=== PATIENT | female | born 1965 | race Caucasian/White ===

== ENCOUNTER 2017-12-27 10:24 | Inpatient (IN) | payer SELFPAY ==
--- NOTE | 2017-12-27 10:39 | EDPHY ---
H & P Time Seen by Provider: 12/27/17 10:32 HPI/ROS: Chief complaint. Calf pain, swelling HPI. 52-year-old female with recent travel to [place] here with shortness of breath and leg pain swelling. Left leg pain and swelling for the past 3 days. Shortness of breath beginning 6 days ago. [place] [address] [place] that was better with rest. No chest discomfort now. Exertional dyspnea with tasks that had been previously not a problem at her house and now upon return she short of breath with walking. Maybe slight fever. Cough for 1 day. Pain began in the left calf with some swelling and now seems to be in the medial thigh. Patient is on control pills. No history thromboembolic disease. Nausea but no abdominal pain ROS Constitutional. Possible fever Eyes. no problems with vision ENT. no sore throat, no nasal drainage Cardiovascular. Chest pain last week with exertion Respiratory. Exertional dyspnea and now cough Abdominal. Nausea but no abdominal pain . no problems urinating MS. Left calf and medial thigh pain and swelling Skin. no rash Lymph. no swollen glands Neuro. no headache, no dizziness, no difficulty walking or with speech Past Medical/Surgical History: Past medical history cholecystectomy, breast reduction Social History: Single, nonsmoker, no alcohol Smoking Status: Never smoked Physical Exam: General Appearance: Alert well-developed female moderate distress vital signs significant heart rate 109 and O2 saturation on room air 91%. Patient is afebrile Eyes: Pupils equal and round no pallor or injection. ENT, Mouth: Mucous membranes are moist. Respiratory: There are no retractions, lungs are clear to auscultation. Cardiovascular: Regular rate and rhythm. Gastrointestinal: Abdomen is soft and nontender, no masses, bowel sounds normal. Neurological: Awake and alert, sensory and motor exams grossly normal. Skin: Warm and dry, no rashes. Musculoskeletal: Neck is supple nontender. Extremities tenderness left posterior calf and medial thigh to palpation but no obvious swelling. Psychiatric: Patient is oriented X 3, there is no agitation. Constitutional: Initial Vital Signs Temperature (C) 36.7 C 12/27/17 10:32 Heart Rate 109 H 12/27/17 10:32 Respiratory Rate 22 H 12/27/17 10:32 Blood Pressure 139/98 H 12/27/17 10:32 O2 Sat (%) 91 L 06/17/18 10:32 O2 Delivery Mode Room Air Allergies/Adverse Reactions: Penicillins Allergy (Severe, Verified 06/21/09 11:26) Anaphylaxis Home Medications: Medication Instructions Recorded Bcp 12/27/17 Levothyroxine 12/27/17 Prozac 10 MG (*) 12/27/17 Xanax 12/27/17 Medical Decision Making - Diagnostics EKG Interpretation: EKG interpreted by me shows sinus tachycardia normal interval and axis. QRS is normal. Inferior and anterior lateral T-wave flattening. 1 PVC. Rate is 101 Imaging Results: CT angiogram chest reviewed by me and discussed with Dr. Walton shows bilateral PEs as well as saddle embolus. Procedures: IV normal saline, monitor. Zofran for nausea Lovenox subcutaneously ED Course/Re-evaluation: Re-evaluation and patient's O2 saturation is about 85%. She is placed on supplemental Oxygen. She complains of leg pain. She agrees to ibuprofen. Patient given 1 milligram/kilogram Lovenox subcu Patient and I discussed imaging study results, laboratory evaluation, treatment plan including recommendation for admission and transfer to [facility] via ambulance. She expresses understanding and agreement I consulted and discussed the case with Dr. Peres, hospitalist, who agrees to the admission Differential Diagnosis: I considered DVT, PE. Considered pneumonia pneumothorax. Considered leg strain. Clearly the patient is at high risk for PE with recent travel. She has leg swelling and exertional dyspnea. She has both PE and DVT. Also considered acute coronary syndrome - Data Points Laboratory Results: Laboratory Results 12/27/17 11:35 12/27/17 12/27/17 12/27/17 11:45 11:42 11:41 WBC RBC Hgb POC Hgb 15.6 gm/dL gm/dL (12.6-16.3) Hct POC Hct 46 % % (38-47) MCV MCH MCHC RDW Plt Count MPV Neut % (Auto) Lymph % (Auto) [place] % (Auto) Eos % (Auto) Baso % (Auto) Nucleat RBC Rel Count Absolute Neuts (auto) Absolute Lymphs (auto) Absolute Monos (auto) Absolute Eos (auto) Absolute Basos (auto) Absolute Nucleated RBC Immature Gran % Immature Gran # PT INR D-Dimer POC Sodium 134 mEq/L L mEq/L 138 mEq/L mEq/L (135-145) (135-145) POC Potassium 3.7 mEq/L mEq/L 3.7 mEq/L mEq/L (3.3-5.0) (3.3-5.0) POC Chloride 105.0 mEq/L mEq/L 107 mEq/L mEq/L (97-110) (97-110) POC Total CO2 19 mEq/L L mEq/L (22-31) POC BUN 18 mg/dL mg/dL 21 mg/dL mg/dL (7-23) (7-23) POC Creatinine 1.2 mg/dL H mg/dL 1.1 mg/dL H mg/dL (0.6-1.0) (0.6-1.0) POC Glucose 110 mg/dL H mg/dL 111 mg/dL H mg/dL (70-100) (70-100) POC Calcium 9.0 mg/dL mg/dL (8.5-10.4) POC Troponin I 0.03 ng/mL ng/mL (0.00-0.08) NT-Pro-B Natriuret Pep 12/27/17 12/27/17 12/27/17 11:35 11:35 11:35 WBC 11.96 10^3/uL H 10^3/uL (3.80-9.50) RBC 5.21 10^6/uL 10^6/uL (4.18-5.33) Hgb 15.3 g/dL g/dL (12.6-16.3) POC Hgb Hct 45.2 % % (38.0-47.0) POC Hct MCV 86.8 fL fL (81.5-99.8) MCH 29.4 pg pg (27.9-34.1) MCHC 33.8 g/dL g/dL (32.4-36.7) RDW 14.4 % % (11.5-15.2) Plt Count 197 10^3/uL 10^3/uL (150-400) MPV 10.1 fL fL (8.7-11.7) Neut % (Auto) 71.9 % % (39.3-74.2) Lymph % (Auto) 15.6 % % (15.0-45.0) [place] % (Auto) 11.7 % % (4.5-13.0) Eos % (Auto) 0.2 % L % (0.6-7.6) Baso % (Auto) 0.3 % % (0.3-1.7) Nucleat RBC Rel Count 0.0 % % (0.0-0.2) Absolute Neuts (auto) 8.60 10^3/uL H 10^3/uL (1.70-6.50) Absolute Lymphs (auto) 1.87 10^3/uL 10^3/uL (1.00-3.00) Absolute Monos (auto) 1.40 10^3/uL H 10^3/uL (0.30-0.80) Absolute Eos (auto) 0.02 10^3/uL L 10^3/uL (0.03-0.40) Absolute Basos (auto) 0.03 10^3/uL 10^3/uL (0.02-0.10) Absolute Nucleated RBC 0.00 10^3/uL 10^3/uL (0-0.01) Immature Gran % 0.3 % % (0.0-1.1) Immature Gran # 0.04 10^3/uL 10^3/uL (0.00-0.10) PT Pending INR Pending D-Dimer Pending POC Sodium POC Potassium POC Chloride POC Total CO2 POC BUN POC Creatinine POC Glucose POC Calcium POC Troponin I NT-Pro-B Natriuret Pep Pending Medications Given: Discontinued Medications Enoxaparin Sodium (Lovenox) 150 mg SC EDNOW ONE Stop: 12/27/17 12:29 Last Admin: 12/27/17 12:46 Dose: 150 mg Sodium Chloride (Ns) 1,000 mls @ 0 mls/hr IV ONCE ONE; Wide Open PRN Reason: Protocol Stop: 12/27/17 10:54 Last Admin: 12/27/17 11:35 Dose: 1,000 mls Ibuprofen (Motrin) 600 mg PO EDNOW ONE Stop: 12/27/17 11:47 Last Admin: 12/27/17 12:44 Dose: 600 mg Ondansetron HCl (Zofran) 4 mg IVP EDNOW ONE Stop: 12/27/17 10:57 Last Admin: 12/27/17 11:36 Dose: 4 mg Point of Care Test Results: Chemistry 12/27/17 12/27/17 12/27/17 11:45 11:42 11:41 POC Sodium 134 mEq/L L mEq/L 138 mEq/L mEq/L (135-145) (135-145) POC Potassium 3.7 mEq/L mEq/L 3.7 mEq/L mEq/L (3.3-5.0) (3.3-5.0) POC Chloride 105.0 mEq/L mEq/L 107 mEq/L mEq/L (97-110) (97-110) POC Total CO2 19 mEq/L L mEq/L (22-31) POC BUN 18 mg/dL mg/dL 21 mg/dL mg/dL (7-23) (7-23) POC Creatinine 1.2 mg/dL H mg/dL 1.1 mg/dL H mg/dL (0.6-1.0) (0.6-1.0) POC Glucose 110 mg/dL H mg/dL 111 mg/dL H mg/dL (70-100) (70-100) POC Calcium 9.0 mg/dL mg/dL (8.5-10.4) POC Troponin I 0.03 ng/mL ng/mL (0.00-0.08) ISTAT H&H 12/27/17 11:41 POC Hgb 15.6 gm/dL gm/dL (12.6-16.3) POC Hct 46 % % (38-47) Departure - Departure Disposition: [facility] Inpatient Acute Clinical Impression: Acute pulmonary embolus Qualifiers: Pulmonary embolism type: saddle Acute cor pulmonale presence: with acute cor pulmonale Qualified Code(s): I26.02 - Saddle embolus of pulmonary artery with acute cor pulmonale Condition: Fair Referrals: Kat Aldana [Primary Care Provider] - As per Instructions
[2017-12-27] MEDS ORDERED: NS 1,000 ML IV ONE (10:53)
[2017-12-27] MEDS ORDERED: ONDANSETRON 4 MG/2 ML VIAL IVP ONE (10:56)
[2017-12-27] MEDS ORDERED: IOPAMIDOL (ISOVUE 370) 100 ML BTL IV ONE (11:10)
--- NOTE | 2017-12-27 11:27 | CPEKG ---
Heart Rate: 101 RR Interval: 594 P-R Interval: 136 QRSD Interval: 86 QT Interval: 376 QTC Interval: 488 P Marion: 66 QRS Marion: 65 T Wave Marion: -49 EKG Severity - ABNORMAL ECG - EKG Impression: SINUS TACHYCARDIA EKG Impression: VENTRICULAR PREMATURE COMPLEX EKG Impression: BORDERLINE T ABNORMALITIES, DIFFUSE LEADS EKG Impression: BORDERLINE PROLONGED QT INTERVAL Electronically Signed By: Vinay Gamble 27-Dec-2017 11:48:17
[2017-12-27] MEDS ORDERED: IBUPROFEN 600 MG TAB PO ONE (11:46)
[2017-12-27] MEDS ORDERED: ENOXAPARIN 120 MG/0.8 ML SYR SC ONE (12:27)
[2017-12-27] MEDS ORDERED: ENOXAPARIN 150 MG/ML SYR SC ONE (12:28)
[2017-12-27] MEDS ORDERED: ENOXAPARIN 100 MG/ML SYR SC ONE (12:32)
[2017-12-27 12:43] LABS: PLATELET COUNT 197 10^3/uL (150-400)
[2017-12-27 13:00] LABS: INR 1.15 (0.83-1.16); PROTIME(PATIENT) 14.9 SEC (12.0-15.0)
[2017-12-27] MEDS ORDERED: oxyCODONE IR 5 MG TAB PO PRN (15:45)
[2017-12-27] MEDS ORDERED: ACETAMINOPHEN 325 MG TAB PO PRN (16:06)
[2017-12-27] MEDS ORDERED: ONDANSETRON 4 MG/2 ML VIAL IVP PRN (16:06)
[2017-12-27] MEDS ORDERED: ONDANSETRON DISINTEGRATING 4 MG TAB PO PRN (16:06)
[2017-12-27] MEDS ORDERED: ALPRAZolam 0.5 MG TAB PO PRN (16:08)
[2017-12-27] MEDS ORDERED: NS 1,000 ML IV SCH (16:15)
[2017-12-27] MEDS: HYDROCODONE/APAP 5/325 TAB PO PRN ×2 (16:38→20:53)
[2017-12-27] MEDS: WARFARIN SODIUM 5 MG TAB PO SCH (16:38)
[2017-12-27] MEDS ORDERED: BISACODYL 10 MG SUPP PR PRN (18:08)
[2017-12-27] MEDS ORDERED: MAGNESIUM HYDROXIDE 30 ML UDCUP PO PRN (18:08)
[2017-12-27] MEDS ORDERED: LACTULOSE 20 GM/30 ML UDCUP PO PRN (18:08)
[2017-12-27] MEDS ORDERED: POLYETHYLENE GLYCOL 3350 17 GM PKT PO PRN (18:08)
[2017-12-27] MEDS: SENNOSIDES/DOCUSATE SODIUM TAB PO SCH (20:53)
--- NOTE | 2017-12-27 22:15 | GHP ---
[f rep st] HISTORY AND PHYSICAL DATE OF ADMISSION: 12/27/2017 CHIEF COMPLAINT: 1. Chest pain. 2. Shortness of breath. HISTORY OF PRESENT ILLNESS: A 52-year-old female, who has been on oral contraceptives for the last y ear who just came back from a trip to [place]. While in [place] she was having dyspnea, although she attri buted it to the altitude. Four days ago she developed pain in her left leg. She then flew back to [facility] in the following day and continued to have shortness of breath and some chest pain. She de nies any fevers or chills. No cough. REVIEW OF SYSTEMS: A 10-point review of systems was obtained and other than as stated above was nega tive. PAST MEDICAL HISTORY: 1. Hypothyroidism. 2. Depression. MEDICATIONS: Reviewed. SOCIAL HISTORY: No smoking or alcohol. FAMILY HISTORY: No history of blood clots. PHYSICAL EXAMINATION: VITAL SIGNS: Afebrile, blood pressure is 132/90, heart rate is 97, oxygen sat uration 86% on room air and at 95% on 2 L. GENERAL: The patient is well developed, no apparent dist ress. HEENT: Nonicteric sclerae. Extraocular movements intact. Moist mucous membranes. NECK: [place] pple. No thyromegaly. LUNGS: Good effort. Clear to auscultation bilaterally. CARDIOVASCULAR: Re gular rate and rhythm. No murmurs or gallops. ABDOMEN: Positive bowel sounds. Soft, nontender, no ndistended. No hepatosplenomegaly. EXTREMITIES: No clubbing, cyanosis. Mild left lower extremity swelling. NEUROLOGIC: Alert and oriented x3. Moving all 4 extremities equally. PSYCH: Normal aff ect. LABS: CBC shows slight elevation of white blood cell count. Chemistry shows a creatinine of 1.2. C T scan of the chest shows multiple pulmonary embolisms including a saddle left lower extremity DVT. Ultrasound shows DVT of the left lower extremity. ASSESSMENT: A 52-year-old female, presenting with pulmonary embolism and deep venous thrombosis. PLAN: PE and DVT: We will continue Lovenox. Patient does not have insurance, and probably warfarin will be the most economical anticoagulant. Because of her weight, we will start at 10 mg daily and can monitor her INR closely. The control pills probably have contributed to her hypercoagulabi lity. She may be able to continue that through the time that she is being anticoagulated, but it wou ld have to be reconsidered once it is time for her to discontinue anticoagulation. /[id number]/MODL
[2017-12-27] MEDS: ENOXAPARIN 150 MG/ML SYR SC SCH ×2 (23:12→23:13)
[2017-12-28 04:24] LABS: PLATELET COUNT 177 10^3/uL (150-400)
[2017-12-28 04:31] LABS: INR 1.26 (0.83-1.16)
[2017-12-28] MEDS: HYDROCODONE/APAP 5/325 TAB PO PRN ×3 (04:33→13:49)
[2017-12-28] MEDS ORDERED: LEVOTHYROXINE 88 MCG TAB PO SCH (06:00)
[2017-12-28] MEDS: SENNOSIDES/DOCUSATE SODIUM TAB PO SCH ×2 (08:47→20:31)
[2017-12-28] MEDS ORDERED: FLUoxetine 20 MG CAP PO SCH (09:00)
--- NOTE | 2017-12-28 09:01 | WOCRNPDOC ---
WOCRN Advanced Assessment Note - Skin Integrity Problem, Advanced Assess Left Pannus Excoriation Dressing Type: Interdry Dressing Description: Clean/Dry, Intact Exudate Amount: None Integumentary Issue Intervention: Visualized Under Dressing Lou Wound Tissue: Scarred Lou Wound Swelling: None Wound Bed Color: Red Site Odor: Strong, Pungent Skin Integrity Problem Comment: Left pannus and groin with intertrigious dermatitis. Interdry in place. Satellite lesions of fungal origin noted. Continue to use the Interdry. Wound care will not be following. Azul Parisi RN wound care team. Moira SPANN and Dede RN in room for care. Right Pannus Excoriation Dressing Type: Interdry Dressing Description: Clean/Dry Exudate Amount: None Integumentary Issue Intervention: Visualized Under Dressing Lou Wound Tissue: Scarred Lou Wound Swelling: None Site Odor: Moderate, Pungent Skin Integrity Problem Comment: Right pannus healing intertrigious dermatitis. Interdry in place. Satellite lesions of fungal origin noted. Continue to use the Interdry. Wound care will not be following. Azul Parisi RN wound care team. Moira SPANN and Dede RN in room for care.
[2017-12-28] MEDS: ENOXAPARIN 150 MG/ML SYR SC SCH ×2 (11:29→23:07)
--- NOTE | 2017-12-28 11:31 | PDMN ---
Medical Necessity Medical necessity: MCG: M290. A-4 days, Pulmonary Embolism: Pt presented w/ dyspnea and CP, CTA showed extensive b/l pulmonary embolus with saddle embolus, LLE DVT, start and continue anticoag treatment. O2 sat 86% RA, requires continuous O2, HR 109. Continue to monitor and treat, anticipate >2MN.
--- NOTE | 2017-12-28 13:34 | ASMTCMCOM ---
CM Note CM Note Notes: 12/28/2017 Case Management Note Met pt during rounds this morning. Pt admitted for DVT and PE. Pt recently returned from trip abroad. Her Mother was in the room during rounds. PT is recommending home. There are no further case management d/c needs identified d/t pt age, family support and independence with ADL's. Case Mangement d/c poc: independent. Date Signed: 12/28/2017 01:33 PM Electronically Signed By:Lisa Ventura RN
--- NOTE | 2017-12-28 14:45 | HOSPPROG ---
Hospitalist Progress Note Assessment/Plan: DIAGNOSES: # acute PE and DVT of right leg, with travel and oral contraceptives as risk factors * Radiologically has a very significant clot burden in the chest * I reviewed with the patient options for anticoagulant medicine. She has no insurance and so I will give her other prescriptions that she can take pharmacy to investigate the cause of Coumadin and Lovenox verses new oral anticoagulation medicines * remains hypoxemic at this time but stable pulse and blood pressure * High enough risk to warrant ongoing inpatient care here # high suspicion for significant underlying pulmonary hypertension given her marked obesity, and some history of asthma * Will do echocardiogram, and if she does have pulmonary hypertension at this time will need follow-up to see if this resolves, and if it does not resolve would need further investigation and aggressive measures to treat causes such as obesity hypoventilation and sleep apnea if present, etc # morbid obesity # renal insufficiency, suspect chronic but chronicity is uncertain at this time # mildly elevated ALT on admission, uncertain cause of that * Will recheck and if remains elevated should have investigation, suspect MARTIN but broad differential diagnosis possible At this point she is stable from yesterday. Tolerating anticoagulation without difficulty so far. 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: Sinus Exam: alert oriented Very obese skin warm dry color ok resps not labored while in bed on oxygen lungs clear BSs heart regular abd soft nondistended nontender, bowel sounds present limbs warm, no edema iv site ok ALT elevated at 65 min Met panel with stable creatinine 1.1 otherwise unremarkable Unremarkable CBC Objective: Vital Signs Temp Pulse Resp BP Pulse Ox 36.1 C 90 14 115/79 94 12/28/17 11:15 12/28/17 11:15 12/28/17 11:15 12/28/17 11:15 12/28/17 11:15 Laboratory Results 12/28/17 03:40 12/28/17 03:40 12/27/17 12/28/17 12/29/17 06:59 06:59 06:59 Intake Total 2250 Output Total 400 Balance 1850 PT 16.0 SEC (12.0-15.0) H 12/28/17 03:40 INR 1.26 (0.83-1.16) H 12/28/17 03:40 - Time Spent With Patient Time Spent with Patient: greater than 35 minutes Time Spent with Patient: Greater than 35 minutes spent on this patients care, greater than 50% of time spent counseling, educating, and coordinating care regarding the above mentioned plan. ICD10 Worksheet Patient Problems: Problems Problem Status Onset Acute pulmonary embolus Acute
--- NOTE | 2017-12-28 16:01 | ECHO ---
[email or web address] [address] [address] Main: [phone] Fax: Transthoracic Echocardiogram Name: CORDELIA MORENO MR#: [id number] Study Date: 12/28/2017 Study Time: 02:58 PM Date of : 1965 Age: 52 year(s) Height: 172.7 cm (68 in.) Weight: 138.35 kg (305 lb.) BSA: 2.45 m2 Gender: Female Examination: Echo Indication: ASSESS FOR PHTN, OBESITY, PE Image Quality: Adequate Contrast: Requested by: Jordon Wills BP: 115 mmHg/79 mmHg Heart Rate: Rhythm: Indication: ASSESS FOR PHTN, OBESITY, PE Procedure Staff Hair Spring Cutter: Aliza Chris RD Reading Physician: Mason Walker MD Requesting Provider: Conclusions: Normal size left ventricle. Normal global systolic LV function. The ejection fraction is visually estimated to be 55 %. Dilated right heart with septal flattening. The mitral valve is normal in appearance and function. Mild mitral valve regurgitation is present. The aortic valve is tri-leaflet. There is no significant aortic valve regurgitation. No aortic valve stenosis is present. Pulmonary artery pressure is not obtained due to inadequate TR jet. No old studies for comparison. Measurements: Chambers Valvular Assessment AV/MV Valvular Assessment TV/PV Normal Normal Normal Name Value Range Name Value Range Name Value Range Ao Holly (2D): 2.7 cm (1.4 cm-2.6 AV Vmax: 1.30 m/s (1 m/s-1.7 TR Vmax: 2.69 mm/s ( - ) cm) m/s) PV Vmax: 0.69 m/s (0.6 m/s-0.9 IVSd (2D): 1.2 cm (0.6 cm-1.1 AV maxP mmHg ( - ) m/s) cm) AV meanP mmHg ( - ) PV PGmax: 2 mmHg ( - ) LVDd (2D): 4.4 cm (3.9 cm-5.3 BLAYNE (VTI): 2.0 cm ( - ) cm) MV E Vmax: 0.52 m/s ( - ) LVDs (2D): 3.2 cm (2.1 cm-4 MV A Vmax: 0.66 m/s ( - ) cm) MV E/A: 0.79 ( - ) LVPWd (2D): 1.1 cm ( - ) MV PHT: 0.069 s ( - ) LVOTd 2.0 cm 2.0 cm mm MVA (PHT): 3.2 s ( - ) LVEF (BP): 57 % (>=55 %) Visual EF: 55 % RVDd(2D): 3.2 cm (1.9 cm-3.8 cmmm) Patient: CORDELIA MORENO Study Date: 12/28/2017 Page 1 of 2 02:58 PM Continued Measurements: Chambers Valvular Assessment AV/MV Name Value Name Value LADs: 3.4 cm MV DecTime: 239 m/s LADs Lon.7 cm MV E' Septal: 0.06 m/s LA Area: 18.8 cm2 MV E/E' Septal: 8.60 LA Volume: 55 ml MV E/E' Lateral: 5.70 LA Volume Index: 22.4 ml/m2 RA Area: 20.3 cm2 Additional Vessels Name Value Ao Ascendin.7 cm Findings: Left Ventricle: Normal size left ventricle. No LV hypertrophy. Normal global systolic LV function. The ejection fraction is visually estimated to be 55 %. No regional wall motion abnormality. Diastolic dysfunction is present. . Right Ventricle: Dilated right heart with septal flattening. Left Atrium: The left atrium is normal in size. Right Atrium: The right atrium is normal in size. Mitral Valve: The mitral valve is normal in appearance and function. Mild mitral valve regurgitation is present. No mitral stenosis is present. Aortic Valve: The aortic valve is tri-leaflet. There is no significant aortic valve regurgitation. No aortic valve stenosis is present. Tricuspid Valve: The tricuspid valve is normal in appearance and function. The pulmonary artery pressure is mildly increased. Pulmonary artery pressure is not obtained due to inadequate TR jet. Pulmonic Valve: The pulmonic valve is normal in appearance and function. There is no pulmonic regurgitation seen. Aorta: The aorta is normal. Normal size aortic root measuring 2.7 cm. Normal size ascending aorta measuring 2.7 cm. IVC: IVC not well visualized, subcostal windows suboptimal. Pericardium: No pericardial effusion. No pleural effusion. (No Signature Object) Patient: CORDELIA MORENO Study Date: 12/28/2017 Page 2 of 2 02:58 PM [id number]
[2017-12-28] MEDS: WARFARIN SODIUM 5 MG TAB PO SCH (17:09)
[2017-12-28] MEDS: traMADol 50 MG TAB PO PRN (23:07)
[2017-12-29] MEDS: HYDROCODONE/APAP 5/325 TAB PO PRN ×4 (03:45→23:40)
[2017-12-29 04:18] LABS: INR 1.7 (0.83-1.16); PROTIME(PATIENT) 20.1 SEC (12.0-15.0)
[2017-12-29] MEDS: traMADol 50 MG TAB PO PRN ×3 (06:30→18:27)
[2017-12-29] MEDS: LEVOTHYROXINE 88 MCG TAB PO SCH (06:31)
[2017-12-29] MEDS: SENNOSIDES/DOCUSATE SODIUM TAB PO SCH ×2 (09:48→20:21)
[2017-12-29] MEDS: FLUoxetine 20 MG CAP PO SCH (09:50)
[2017-12-29] MEDS ORDERED: CANN-EASE 2 GM TUBE TP PRN (10:12)
[2017-12-29] MEDS: ENOXAPARIN 150 MG/ML SYR SC SCH ×2 (11:04→23:40)
[2017-12-29] MEDS ORDERED: WARFARIN SODIUM 5 MG TAB PO ONE (16:00)
--- NOTE | 2017-12-29 18:57 | HOSPPROG ---
Hospitalist Progress Note Assessment/Plan: DIAGNOSES: # acute PE and DVT of right leg, with travel and oral contraceptives as risk factors * Radiologically has a very significant clot burden in the chest * I reviewed with the patient options for anticoagulant medicine. She has no insurance and so I will give her other prescriptions that she can take pharmacy to investigate the cause of Coumadin and Lovenox verses new oral anticoagulation medicines * Remains hypoxemic in fairly symptomatic with significant exertional dyspnea * High enough risk to warrant ongoing inpatient care here # echocardiogram does not show any pulmonary hypertension # morbid obesity # renal insufficiency, suspect chronic but chronicity is uncertain at this time # mildly elevated ALT on admission, uncertain cause of that * Will check hepatitis-B and C serologies Patient had numerous questions as did her family members at the bedside today and I have answered all these questions to their satisfaction, reviewed the treatment plan, reviewed bleeding risks of anticoagulation, etc Seen by me today on hospitals rounds as well as multidisciplinary rounds SUBJECTIVE: Continues to have some pain in her leg unchanged from yesterday Perhaps less dyspneic at rest but still requiring oxygen, and even with oxygen gets quite dyspneic with any ambulation, could only walk very short distance without having to stop and catch her breath OBJECTIVE Vitals reviewed: Did have 1 episode briefly of tachycardia overnight but is overall so far stable vitals without fever 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, 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: Sinus Exam: alert oriented Very obese skin warm dry color ok resps not labored while in bed on oxygen lungs clear BSs heart regular abd soft nondistended nontender, bowel sounds present limbs warm, no edema iv site ok ALT remains elevated at 67 with other enzymes and bilirubin normal I reviewed echocardiogram which shows no evidence of pulmonary hypertension Objective: Vital Signs Temp Pulse Resp BP Pulse Ox 36.6 C 80 16 130/78 H 96 12/29/17 15:56 12/29/17 15:56 12/29/17 15:56 12/29/17 15:56 12/29/17 15:56 Laboratory Results 12/28/17 03:40 12/28/17 03:40 12/28/17 12/29/17 12/30/17 06:59 06:59 06:59 Intake Total 2250 2049 1000 Output Total 400 Balance 1850 2049 1000 PT 20.1 SEC (12.0-15.0) H 12/29/17 03:35 INR 1.70 (0.83-1.16) H 12/29/17 03:35 - Time Spent With Patient Time Spent with Patient: greater than 35 minutes Time Spent with Patient: Greater than 35 minutes spent on this patients care, greater than 50% of time spent counseling, educating, and coordinating care regarding the above mentioned plan. ICD10 Worksheet Patient Problems: Problems Problem Status Onset Acute pulmonary embolus Acute
[2017-12-29 20:20] LABS: HEPATITIS B SURFACE ANTIGEN NEGATIVE (NEGATIVE); HEPATITIS C ANTIBODY TOTAL NEGATIVE (NEGATIVE)
[2017-12-30 04:26] LABS: INR 2.1 (0.83-1.16); PROTIME(PATIENT) 23.6 SEC (12.0-15.0)
[2017-12-30] MEDS: traMADol 50 MG TAB PO PRN ×2 (05:52→15:08)
[2017-12-30] MEDS: LEVOTHYROXINE 88 MCG TAB PO SCH (05:53)
[2017-12-30] MEDS: FLUoxetine 20 MG CAP PO SCH (09:51)
[2017-12-30] MEDS: SENNOSIDES/DOCUSATE SODIUM TAB PO SCH ×2 (09:52→21:36)
[2017-12-30] MEDS: HYDROCODONE/APAP 5/325 TAB PO PRN ×2 (09:56→21:35)
[2017-12-30] MEDS: ENOXAPARIN 150 MG/ML SYR SC SCH ×2 (12:51→23:04)
[2017-12-30] MEDS: WARFARIN SODIUM 5 MG TAB PO SCH (17:57)
--- NOTE | 2017-12-30 21:31 | HOSPPROG ---
Hospitalist Progress Note Assessment/Plan: DIAGNOSES: # acute PE and DVT of right leg, with travel and oral contraceptives as risk factors * Radiologically has a very significant clot burden in the chest * Continue Lovenox 1 more day and follow INR on Coumadin * Remains hypoxemic and fairly symptomatic with significant and debilitating exertional dyspnea * High enough risk to warrant ongoing inpatient care here 1-2 more days # echocardiogram does not show any pulmonary hypertension # morbid obesity # renal insufficiency, suspect chronic but chronicity is uncertain at this time # mildly elevated ALT on admission, uncertain cause of that * Suspect MARTIN, negative hep B and C at this time Seen by me today on hospitals rounds as well as multidisciplinary rounds SUBJECTIVE: Continues to have some pain in her leg unchanged from yesterday Still very significant dyspnea on exertion and requiring oxygen at rest for symptoms and hypoxemia but stable vital signs while on oxygen otherwise; does get tachycardic off oxygen OBJECTIVE Vitals reviewed: Tachycardic if she takes off her oxygen otherwise stable [employer], my review: Sinus Exam: alert oriented Very obese skin warm dry color ok resps not labored while in bed on oxygen lungs clear BSs heart regular abd soft nondistended nontender, bowel sounds present limbs warm, no edema iv site ok Hep B and C serologies negative I reviewed echocardiogram which shows no evidence of pulmonary hypertension Objective: Vital Signs Temp Pulse Resp BP Pulse Ox 36.7 C 89 16 137/95 H 97 12/30/17 20:17 12/30/17 20:17 12/30/17 20:17 12/30/17 20:17 12/30/17 20:17 Laboratory Results 12/28/17 03:40 12/28/17 03:40 12/29/17 12/30/17 12/31/17 06:59 06:59 06:59 Intake Total 2049 1750 650 Balance 2049 1750 650 PT 23.6 SEC (12.0-15.0) H 12/30/17 03:34 INR 2.10 (0.83-1.16) H 12/30/17 03:34 - Time Spent With Patient Time Spent with Patient: greater than 35 minutes Time Spent with Patient: Greater than 35 minutes spent on this patients care, greater than 50% of time spent counseling, educating, and coordinating care regarding the above mentioned plan. ICD10 Worksheet Patient Problems: Problems Problem Status Onset Acute pulmonary embolus Acute
[2017-12-31] MEDS: HYDROCODONE/APAP 5/325 TAB PO PRN (05:49)
[2017-12-31] MEDS: LEVOTHYROXINE 88 MCG TAB PO SCH (05:50)
[2017-12-31 05:59] LABS: INR 2.11 (0.83-1.16); PROTIME(PATIENT) 23.7 SEC (12.0-15.0)
[2017-12-31] MEDS: FLUoxetine 20 MG CAP PO SCH (09:18)
[2017-12-31] MEDS: SENNOSIDES/DOCUSATE SODIUM TAB PO SCH ×2 (09:18→22:00)
[2017-12-31] MEDS: traMADol 50 MG TAB PO PRN ×2 (09:22→16:21)
[2017-12-31] MEDS: ENOXAPARIN 150 MG/ML SYR SC SCH ×2 (12:35→23:35)
--- NOTE | 2017-12-31 13:48 | ASMTCMCOM ---
CM Note CM Note Notes: Pts case discussed in tx rounds. Pt is still experiencing some shortness of breath. No needs identified at this time. Anticipate d/c for tomorrow. CM available for changes. Plan: Independent Date Signed: 12/31/2017 01:48 PM Electronically Signed By:DIANA Rosas
[2017-12-31] MEDS: WARFARIN SODIUM 5 MG TAB PO SCH (16:19)
--- NOTE | 2017-12-31 21:06 | HOSPPROG ---
Hospitalist Progress Note Assessment/Plan: DIAGNOSES: # acute PE and DVT of left leg, with travel and oral contraceptives as risk factors * Radiologically has a very significant clot burden in the chest * Lovenox discontinued today will continue on Coumadin and monitor INRs * Remains hypoxemic and fairly symptomatic with significant and debilitating exertional dyspnea * Would continue inpatient care here 1-2 more days potentially home tomorrow but will need home oxygen # echocardiogram does not show any pulmonary hypertension # morbid obesity # renal insufficiency, suspect chronic but chronicity is uncertain at this time # mildly elevated ALT on admission, uncertain cause of that * Suspect MARTIN, negative hep B and C at this time Seen by me today on hospitals rounds as well as multidisciplinary rounds SUBJECTIVE: Some more notable improvement in her symptoms today, though still remains very dependent on her oxygen and fairly limited in ambulation due to dyspnea. The leg pain is much more intermittent today OBJECTIVE Vitals reviewed: Overall remains stable but requiring oxygen [employer], my review: Sinus Exam: alert oriented Very obese skin warm dry color ok resps not labored while in bed on oxygen lungs clear BSs heart regular abd soft nondistended nontender, bowel sounds present limbs warm, mild edema in her left leg from DVT iv site ok Hep B and C serologies negative I reviewed echocardiogram which shows no evidence of pulmonary hypertension Objective: Vital Signs Temp Pulse Resp BP Pulse Ox 36.8 C 86 20 142/80 H 96 12/31/17 20:00 12/31/17 20:00 12/31/17 20:00 12/31/17 20:00 12/31/17 20:00 Laboratory Results 12/28/17 03:40 12/28/17 03:40 12/30/17 12/31/17 01/01/18 06:59 06:59 06:59 Intake Total 1750 1300 Balance 1750 1300 PT 23.7 SEC (12.0-15.0) H 12/31/17 05:45 INR 2.11 (0.83-1.16) H 12/31/17 05:45 ICD10 Worksheet Patient Problems: Problems Problem Status Onset Acute pulmonary embolus Acute
[2018-01-01] MEDS: traMADol 50 MG TAB PO PRN (02:33)
[2018-01-01 04:35] LABS: INR 2.43 (0.83-1.16); PROTIME(PATIENT) 26.4 SEC (12.0-15.0)
[2018-01-01] MEDS: FLUoxetine 20 MG CAP PO SCH (07:57)
[2018-01-01] MEDS: SENNOSIDES/DOCUSATE SODIUM TAB PO SCH (07:58)
--- NOTE | 2018-01-01 12:58 | PDHOMEO2F ---
Home Oxygen Face to Face Home Orders: I certify that a physician or a nurse practitioner or physician's emergency room physician assistant has had a [id number] encounter with this patient on the date of this order due to the diagnosis listed, which relates to the primary reason the patient requires home oxygen. Alternative treatments have been tried, or considered, and deemed ineffective. It is anticipated that supplemental oxygen will result in improvement with treatment. Home oxygen qualifying diagnosis: Acute Pulmonary Embolism Home oxygen secondary diagnosis: Morbid Obesity SpO2 on room air (%): 86 Frequency of home oxygen needed: continuous Home oxygen liters per minute: 3 Home oxygen delivery device: nasal cannula Concentrator: Yes E-tanks for mobility and back up: Yes If ordering portable O2, is the patient mobile in the home?: Yes I certify that, based on these findings, the home oxygen is medically necessary for this patient for the following length of time. Length of time home oxygen needed: 1 month
[2018-01-01 13:01] VITALS: BP 132/74
--- NOTE | 2018-01-01 18:46 | PDDCSUM ---
Discharge Summary Discharge Summary: DISCHARGE SUMMARY FOLLOW-UP ITEMS: PT and INR on 01/04 to be followed up by primary care provider Repeat CT scan in 6 months to reassess right upper lobe pulmonary nodule Repeat echocardiogram in 6-12 months to reassess her pulmonary hypertension DATE OF ADMISSION: 12/27/2017 DATE OF DISCHARGE: 01/01/2018 DISCHARGE DIAGNOSES: 1. Acute pulmonary embolism present on admission 2. Acute deep venous thrombosis left lower extremity present on admission 3. Morbid obesity 4. Suspected chronic kidney disease stage 3 5. Suspected nonalcoholic steatohepatitis 6. Right upper lobe pulmonary nodule CONSULTATIONS: None PROCEDURES / IMAGING: CT angiogram demonstrating bilateral saddle pulmonary emboli with right upper lobe pulmonary nodule CHIEF COMPLAINT: Acute shortness of breath SUBJECTIVE: Patient continues to experience exertional shortness of breath but she is resting comfortably, feeling confident for discharge PHYSICAL EXAM ON DISCHARGE: Systolic blood pressure 130-140, heart rate 70, afebrile overnight, satting well on 2 L nasal cannula at rest, 3 L nasal cannula with activity, SpO2 86% on room air at rest, reduced inspiratory capacity secondary to chest discomfort, no expiratory wheezes, morbidly obese appearing, heart rhythm is regular, left lower extremity is asymmetrically edematous compared to right LABS ON DISCHARGE: Creatinine 1.2, INR 2.4 HOSPITAL COURSE BY PROBLEM: The patient presented with acute saddle pulmonary embolism secondary to acute deep venous thrombosis of the left lower extremity, both which were present on admission and most likely secondary to recent international travel as well as oral contraceptive use and morbid obesity. She was emergently initiated on systemic anticoagulation and received a Lovenox bridge to therapeutic Coumadin. She was placed on supplemental oxygen for hypoxia and her physical activity was initially severely limited secondary to this hypoxia and chest discomfort experienced from the pulmonary emboli. She also experienced left lower extremity pain secondary to edema from her deep venous thrombosis. She received as needed tramadol with good effect. She also utilized heat pad for left lower extremity. We recommend that she discontinue her oral contraceptive therapy. An echocardiogram demonstrated an ejection fraction 55% with dilated right side and septal flattening, consistent with her saddle pulmonary emboli. Consequently, the patient is at risk for future pulmonary hypertension and we would recommend that she received outpatient monitoring with echocardiogram. She may require outpatient pulmonary referral if she does demonstrate evidence of persistent pulmonary hypertension. Coumadin was chosen secondary to the patient's evidence of possible chronic kidney disease stage 3, as well as her uninsured status, and the patient chose to utilize Coumadin in the short term while she explore is the potential cost assistance programs available for DOAC therapy. Of note, the patient did have an elevated ALT level with a negative viral hepatitis panel, and it is suspected that the patient has underlying stat a hepatitis secondary to her morbid obesity. DISCHARGE MEDICATIONS: Please see official discharge medication reconciliation sheet in chart , Coumadin 5 mg daily, as needed tramadol, as needed Tylenol, discontinuation of oral contraceptive. DISCHARGE INSTRUCTIONS: Please have your outpatient oxygen requirements reassessed a primary care provider office prior to discontinuing oxygen, and make sure that these include ambulatory saturation levels. TIME SPENT: Greater than 30 minutes were spent on direct patient care, as well as discharge planning and preparation.
[2018-01-02] MEDS ORDERED: LEVOTHYROXINE 88 MCG TAB PO SCH (06:00)
== END 2018-01-01 15:34 | disposition home or self-care (01) | DRG 176 ==
LOC: CED 10:24 → CEDHOLD 12:55 → F2W 14:47
PROVIDERS: ADMIT Internal Medicine; ATTEND Internal Medicine
DX: I26.99 Other pulmonary embolism without acute cor pulmonale (principal); I82.4Z2 Acute embolism and thrombosis of unspecified deep veins of left distal lower extremity; R09.02 Hypoxemia; Z79.3 Long term (current) use of hormonal contraceptives; N18.3 Chronic kidney disease, stage 3 (moderate); R91.1 Solitary pulmonary nodule; E03.9 Hypothyroidism, unspecified; K75.81 Nonalcoholic steatohepatitis (NASH); E66.01 Morbid (severe) obesity due to excess calories; Z68.41 Body mass index [BMI] 40.0-44.9, adult
CPT/HCPCS: 71275-PO; 80048-PO; 82435-PO; 82565-PO; 82947-PO; 84132-PO; 84295-PO; 84484-PO; 84520-PO; 85014-PO; 93971-PO; 96374; 97116-GP; 97161-GP; 97165-GO; 97530-GO; 97535-GO; G0472; J1650; J2405; Q9967